=== PATIENT | female | born 1985 | race Caucasian/White ===

== ENCOUNTER 2020-01-27 10:39 | Day surgery (SDC) | payer OTHER ==
[~2020-01-27] VITALS: Ht 170.2 cm; Wt 103.6 kg
[2020-01-27 11:45] VITALS: BP 136/81; PULSE 86; TEMP 97.5
[2020-01-27] MEDS ORDERED: ROXICODONE 55 MG/TAB PO (11:59)
[2020-01-27] MEDS ORDERED: ZOFRAN 4MG T4 MG/TAB PO (11:59)
[2020-01-27] MEDS ORDERED: BACTRIM DS 8001 TAB PO (12:01)
--- NOTE | 2020-01-27 12:03 | NUR ---
TO RM AT 1115- CALL LIGHT IN REACH FRIEND CJ AT [facility].E
[2020-01-27 13:05] VITALS: BP 117/74; PULSE 94; TEMP 97
--- NOTE | 2020-01-27 13:05 | NUR ---
TO RM 8 PER CART FROM OR. DROWSY AND OPENS EYES AND ANSWERED A FEW QUESTIONS. PATIENT THEN FALLS BACK TO SLEEP. DR BAILEY TALKED TO FRIEND CJ PRIOR TO PATIENT RETURNING TO RM. DENIES PAIN OR DISCOMFORT AT CURRENT TIME.
[2020-01-27 13:20] VITALS: BP 120/75; PULSE 94
--- NOTE | 2020-01-27 13:20 | NUR ---
RECEIVED WATER AND TAKING A FEW SIPS AND FALLS BACK TO SLEEP.
[2020-01-27 13:35] VITALS: BP 123/77; PULSE 89
--- NOTE | 2020-01-27 13:35 | NUR ---
PATIENT RESTING QUIETLY.
[2020-01-27 14:00] VITALS: BP 113/76; PULSE 77
--- NOTE | 2020-01-27 14:00 | NUR ---
MORE AWAKE AND RECEIVED MUFFIN.
[2020-01-27 14:30] VITALS: BP 116/72; PULSE 74
--- NOTE | 2020-01-27 14:30 | NUR ---
ATE 100% AND TOLERATED WELL. AMBULATED TO BATHROOM VOIDED 400CC LIGHT YELLOW CLEAR . NO STONES NOTED
--- NOTE | 2020-01-27 14:45 | NUR ---
RECEIVED DISCHARGE INSTRUCTIONS AND VERBALIZED UNDERSTANDING. RECEIVED COLLECTION HAT, STRAINER AND HAT FOR STONE COLLECTION. DISCONTINUED IV AND INT PATIENT GETTING DRESSED.
--- NOTE | 2020-01-27 15:00 | NUR ---
DISCHARGED PER WC BY NURSING STAFF TO PRIVATE CAR IN CARE OF FRIEND CJ
== END 2020-01-27 15:14 | disposition home or self-care (01) ==
LOC: SDCO 10:39
DX: N20.1 Calculus of ureter (principal); Z91.048 Other nonmedicinal substance allergy status; Z88.5 Allergy status to narcotic agent; Z80.8 Family history of malignant neoplasm of other organs or systems; Z80.42 Family history of malignant neoplasm of prostate; Z88.8 Allergy status to other drugs, medicaments and biological substances; Z87.440 Personal history of urinary (tract) infections; Z20.828 Contact with and (suspected) exposure to other viral communicable diseases
CPT/HCPCS: J0690; J2250; J2405; J2704

== ENCOUNTER 2021-01-18 14:45 | Emergency (ER) | payer OTHER ==
[~2021-01-18] VITALS: Ht 170.2 cm; Wt 100.0 kg
[~2021-01-18 14:45] MED LIST: BACTRIM DS 8001 TAB PO; ROXICODONE 55 MG/TAB PO; ZOFRAN 4MG T4 MG/TAB PO
[2021-01-18 15:08] VITALS: BP 110/77; TEMP 98.5
[2021-01-18 16:40] VITALS: PULSE 82
== END 2021-01-18 16:40 | disposition home or self-care (01) ==
LOC: COL.ER 14:45
DX: S61.412A Laceration without foreign body of left hand, initial encounter (principal); W26.0XXA Contact with knife, initial encounter